=== PATIENT | male | born 1995 | race Caucasian/White ===

== ENCOUNTER → 2017-06-30 | Outpatient (CLI) | payer BC ==
--- NOTE | 2017-06-30 13:12 | Diagnostic Imaging Report ---
PROCEDURE: MRI left joint lower extremity without contrast. TECHNIQUE: Multiplanar, multisequence non contrast-enhanced MRI of the left lower extremity was accomplished. INDICATION: Knee pain. There are no prior studies available for comparison. FINDINGS: The fat-saturated proton dense sagittal series shows a vertically oriented tear along the free edge of the junction of the anterior horn and midportion of the lateral meniscus. There is also poorly defined band of increased signal extending longitudinally through the lateral meniscus. This may be secondary to degenerative disease or to an intrasubstance tear. There is also a tear involving the posterior horn of the medial meniscus. The anterior and posterior cruciate ligaments, the quadriceps and infrapatellar tendons and the medial collateral ligament are intact. There does appear to be edema/inflammation along the lateral aspect of the knee joint. The fibular collateral ligament, the biceps femoris tendon and the iliotibial band are intact, however. There is no sign of a tear of either the medial or lateral retinaculum. There is no abnormal signal arising from the osseous structures to suggest bone edema or a fracture. The knee joint itself is well maintained. There is a small joint effusion present. There is also a Allred's cyst measuring approximately 1.9 x 2.9 cm. IMPRESSION: 1. There is a vertically oriented tear along the free edge of the junction of the anterior horn and midportion of the lateral meniscus. There is also a small tear involving the posterior horn of the medial meniscus. 2. The major ligaments and tendons are intact but there is edema/inflammation about the lateral aspect of the knee joint. 3. There is no sign of an acute bony abnormality. 4. There is a small joint effusion and a Allred's cyst. Dictated by: Dictated on workstation # [id number]
== END ==
LOC: RAD 09:24
PROVIDERS: ATTEND Orthopaedic Surgery
DX: S83.242A Other tear of medial meniscus, current injury, left knee, initial encounter (principal); M71.22 Synovial cyst of popliteal space [Baker], left knee; M76.9 Unspecified enthesopathy, lower limb, excluding foot
CPT/HCPCS: 73721